=== PATIENT | female | born 1980 | race Caucasian/White ===

== ENCOUNTER 2022-06-16 12:31 | Outpatient (CLI) | payer BC ==
[~2022-06-16 12:31] MED LIST: Iopamidol 300 61% 100 ML VIAL FS ONE
== END 2022-06-16 12:32 | disposition home or self-care (01) ==
LOC: CSHMAMMO 12:31
PROVIDERS: ATTEND Internal Medicine
DX: Z12.31 Encounter for screening mammogram for malignant neoplasm of breast (principal); R59.0 Localized enlarged lymph nodes; K44.9 Diaphragmatic hernia without obstruction or gangrene; Z80.3 Family history of malignant neoplasm of breast
CPT/HCPCS: 71260; 77063; 77067

== ENCOUNTER 2023-06-17 09:41 | Outpatient (CLI) | payer BC | END 2023-06-17 09:42 | disposition home or self-care (01) | LOC: CSHMAMMO 09:41 | PROVIDERS: ATTEND Internal Medicine | DX: Z12.31 Encounter for screening mammogram for malignant neoplasm of breast (principal); Z80.3 Family history of malignant neoplasm of breast | CPT/HCPCS: 77063; 77067 ==

== ENCOUNTER 2024-08-30 08:41 | Outpatient (CLI) | payer BC | END 2024-08-30 08:42 | disposition home or self-care (01) | LOC: CSHSLEEP 08:41 | PROVIDERS: ATTEND Internal Medicine | DX: G47.33 Obstructive sleep apnea (adult) (pediatric) (principal); R53.83 Other fatigue; R41.89 Other symptoms and signs involving cognitive functions and awareness; E66.9 Obesity, unspecified; Z68.29 Body mass index [BMI] 29.0-29.9, adult; R06.83 Snoring | CPT/HCPCS: 95811 ==